=== PATIENT | female | born 1975 | race Caucasian/White ===

== ENCOUNTER 2020-09-09 09:15 | Outpatient (CLI) | payer OTHER, SELFPAY ==
--- NOTE | 2020-09-09 09:26 | MM_ITS ---
WS: [id number] BILATERAL DIGITAL SCREENING MAMMOGRAM WITH CAD CLINICAL INFORMATION: SCREENING HISTORY: Screening mammogram. No current complaints. COMPARISON: TECHNIQUE: Bilateral CC and MLO. FINDINGS: The breast are composed of extremely dense tissue, which can limit the detection of small underlying mass lesions. No suspicious focal mass, asymmetry, calcifications, or architectural distortion. No ev idence of malignancy. MM/[place] [id number] IMPRESSION: BI-RADS: 1-Negative FOLLOW UP: 1 Year Follow-up Recommend return to annual screening mammography.
== END 2020-09-09 09:16 | disposition home or self-care (01) ==
LOC: RADSHAW 09:17
PROVIDERS: Visit Provider Nurse Practitioner Family
DX: Z12.31 Encounter for screening mammogram for malignant neoplasm of breast (principal)
CPT/HCPCS: 77067

== ENCOUNTER → 2020-09-28 12:01 | Outpatient (BNVA) | payer OTHER, SELFPAY | PROVIDERS: Visit Provider Family Medicine Adult Medicine | DX: M89.8X8 Other specified disorders of bone, other site (principal); Z00.00 Encounter for general adult medical examination without abnormal findings; M25.552 Pain in left hip | CPT/HCPCS: 73502; 80053; 85025; 85651; 86140 ==

== ENCOUNTER 2020-12-28 13:18 | Outpatient (CLI) | payer OTHER, SELFPAY ==
--- NOTE | 2020-12-28 | MR_ITS ---
WS: [id number] MRI PELVIS without CONTRAST. COMPARISON: LEFT hip radiograph. Pelvic ultrasound 12/30/2016. HISTORY: 4 months of the LEFT iliac crest pain. No injury. Multiplanar, multisequence imaging is performed without contrast. Normal appearance of the LEFT iliac crest in the bones of the pelvis. No destructive bone lesions or soft tissue abnormality. There is no edema. Very slight narrowing of the hip joints. No erosions srini g the SI joints. Symmetric appearance of the soft tissues and muscles. Uterus is not identified. No midline soft tissue mass within the pelvis. There is a complex heterogen eous mass in the LEFT adnexa. Variable signal intensity within LEFT adnexal mass. This LEFT adnexal m ass corresponds to the ovary measuring 2.5 x 3.8 x 3.1 cm. Portion of this LEFT adnexal mass is of in creased T1 signal with fat suppression. There is an additional component that appears more cystic. Th ere is a small amount of edema and soft tissue induration and a small amount of free fluid in the pel vis. MR/MR pelvis wo con* [id number] IMPRESSION: 1. No signal abnormality within the LEFT pelvic osseous structures. 2. LEFT adnexal mass consistent with a slightly enlarged heterogeneous ovary m easuring 2.5 x 3.8 x 3.1 cm. Adjacent small amount of free fluid and free fluid in the pelvis. Differential includes dermoid versus hemorrhagic cyst or endome trioma. This was not identified on the prior pelvic ultrasound from 2017. Recom mend follow-up transvaginal pelvic ultrasound imaging for further characterizat ion of this LEFT adnexal mass.
== END 2020-12-28 13:19 | disposition home or self-care (01) ==
PROVIDERS: Visit Provider Family Medicine Adult Medicine
DX: M89.8X8 Other specified disorders of bone, other site (principal); Q50.39 Other congenital malformation of ovary
CPT/HCPCS: 72195

== ENCOUNTER → 2021-01-28 15:47 | Outpatient (BNVA) | payer OTHER, SELFPAY | PROVIDERS: Visit Provider Obstetrics & Gynecology | DX: N83.8 Other noninflammatory disorders of ovary, fallopian tube and broad ligament (principal); Z90.710 Acquired absence of both cervix and uterus | CPT/HCPCS: 76830 ==

== ENCOUNTER → 2021-04-20 08:35 | Outpatient (BNVA) | payer OTHER, SELFPAY | PROVIDERS: Visit Provider Family Medicine | DX: Z20.822 Contact with and (suspected) exposure to COVID-19 (principal) | CPT/HCPCS: 87426 ==

== ENCOUNTER → 2021-09-29 12:39 | Outpatient (BNVA) | payer OTHER, SELFPAY | PROVIDERS: Visit Provider Family Medicine Adult Medicine | DX: Z71.84 Encounter for health counseling related to travel (principal); Z20.822 Contact with and (suspected) exposure to COVID-19 | CPT/HCPCS: 87635; 87801 ==

== ENCOUNTER 2021-10-20 10:06 | Outpatient (CLI) | payer OTHER, SELFPAY ==
--- NOTE | 2021-10-20 10:11 | MM_ITS ---
WS: [id number] SCREENING DIGITAL BREAST TOMOSYNTHESIS MAMMOGRAM WITH CAD HISTORY: SCREENING COMPARISON: 09/09/2020, 01/31/2019 Bilateral CC and MLO with tomosynthesis and synthetic mammography submitted. Computer aided detection analyzed. Breast composition: The breasts are extremely dense, which lowers the sensitivity of mammography. Well-circumscribed mass in the inferior medial LEFT breast since the prior examination. This mass is well-circumscribed measuring 7 mm. This mass is in the mid to posterior breast at approximately 7:00 axis. No calcifications. MM/[place] [id number] IMPRESSION: BI-RADS: 0-Incomplete: Need additional imaging evaluation FOLLOW UP: Need Additional Imaging Recommendation: LEFT breast ultrasound, limited. Ultrasound directed LEFT breas t from 6-9 o'clock.
== END 2021-10-20 10:07 | disposition home or self-care (01) ==
LOC: RAD 10:06
PROVIDERS: PCP Family Medicine Adult Medicine; Visit Provider Family Medicine Adult Medicine
DX: Z12.31 Encounter for screening mammogram for malignant neoplasm of breast (principal)
CPT/HCPCS: 77063; 77067

== ENCOUNTER 2021-11-03 07:31 | Outpatient (CLI) | payer OTHER, SELFPAY ==
--- NOTE | 2021-11-03 07:38 | US_ITS ---
WS: [id number] ULTRASOUND BREAST LEFT TECHNIQUE: Ultrasound left breast focused area of concern. CLINICAL INFORMATION: Ultrasound directed LEFT breast from 6-9 o'clock. COMPARISON: October 20, 2021 FINDINGS: Ultrasound LEFT breast 6:00 position 1 cm from the nipple. There is a 6.7 x 3.2 x 3.6 mm anechoic cys t. Tiny amount of internal debris with a tiny septation. This has a benign appearance. This correspon ds to the 7 mm lesion seen on the prior mammogram. Recommend 6 month follow-up to confirm stability c onsidering slightly complex appearance. No other suspicious findings. No lesions to target for biopsy. . US/US breast LT limited* [id number] IMPRESSION: BI-RADS 3 PROBABLY BENIGN FOLLOW UP: RECOMMEND 6 MONTH FOLLOW-UP LEFT BREAST DIAGNOSTIC MAMMOGRAPHY AND U LTRASOUND.
== END 2021-11-03 07:32 | disposition home or self-care (01) ==
PROVIDERS: PCP Family Medicine Adult Medicine; Visit Provider Family Medicine Adult Medicine
DX: R92.8 Other abnormal and inconclusive findings on diagnostic imaging of breast (principal)
CPT/HCPCS: 76642

== ENCOUNTER 2022-06-01 10:41 | Outpatient (CLI) | payer OTHER, SELFPAY ==
--- NOTE | 2022-06-01 10:49 | MM_ITS ---
WS: [id number] LEFT 3D TOMOSYNTHESIS DIGITAL MAMMOGRAPHY WITH CAD CLINICAL INFORMATION: 6 month follow up HISTORY: Six-month follow-up COMPARISON: October 20, 2021 and November 03, 2021 TECHNIQUE: 3 views of the left breast were obtained. FINDINGS: The left breast is composed of heterogeneous fibroglandular density tissue, which can limit the detec tion of small underlying mass lesions. Previously described ovoid lesion in the inferior medial LEFT breast is not well seen on today's study and may have resolved. No other suspicious or new abnormalit ies. Ultrasound described below. ULTRASOUND BREAST LEFT TECHNIQUE: Ultrasound left breast focused area of concern. CLINICAL INFORMATION: 6 month follow up COMPARISON: November 03, 2021 FINDINGS: Previously described cystic lesion at the 6:00 position is no longer visualized today. Normal underly ing parenchymal tissue. No cystic or solid lesions. Recommend return to annual screening mammography. MM/[place] [id number] IMPRESSION: BI-RADS: 2-Benign FOLLOW UP: 1 Year Follow-up Recommend return to annual screening mammography.
== END 2022-06-01 10:42 | disposition home or self-care (01) ==
LOC: RAD 10:41
PROVIDERS: PCP Family Medicine Adult Medicine; Visit Provider Family Medicine Adult Medicine
DX: R92.8 Other abnormal and inconclusive findings on diagnostic imaging of breast (principal)
CPT/HCPCS: 76642; 77061; G0279

== ENCOUNTER → 2023-04-28 08:52 | Outpatient (BNVA) | payer OTHER, SELFPAY | PROVIDERS: PCP Family Medicine Adult Medicine; Visit Provider Family Medicine Adult Medicine | DX: R10.9 Unspecified abdominal pain (principal); N20.2 Calculus of kidney with calculus of ureter; R31.9 Hematuria, unspecified | CPT/HCPCS: 81000 ==

== ENCOUNTER 2023-09-20 08:57 | Outpatient (CLI) | payer OTHER, SELFPAY ==
--- NOTE | 2023-09-20 09:00 | MM_ITS ---
WS: [id number] BILATERAL SCREENING DIGITAL TOMOSYNTHESIS MAMMOGRAM WITH CAD HISTORY: annual screening COMPARISON: 06/01/2022, 09/09/2020 Bilateral CC and MLO views with tomosynthesis and synthetic mammography submitted. Computer aided det ection analyzed. Breast composition: The breasts are heterogeneously dense, which may obscure small masses. No suspici ous masses, microcalcifications or architectural distortion. IMPRESSION: MM/[place] [id number] BI-RADS: 1-Negative FOLLOW UP: 1 Year Follow-up
== END 2023-09-20 08:58 | disposition home or self-care (01) ==
LOC: RAD 08:58
PROVIDERS: PCP Family Medicine Adult Medicine; Visit Provider Family Medicine Adult Medicine
DX: Z12.31 Encounter for screening mammogram for malignant neoplasm of breast (principal)
CPT/HCPCS: 77063; 77067

== ENCOUNTER → 2023-10-06 07:59 | Outpatient (BNVA) | payer OTHER, SELFPAY | PROVIDERS: PCP Family Medicine Adult Medicine; Visit Provider Family Medicine Adult Medicine | DX: Z56.9 Unspecified problems related to employment (principal) | CPT/HCPCS: 86706 ==

== ENCOUNTER 2024-11-20 09:30 | Outpatient (CLI) | payer OTHER, SELFPAY ==
--- NOTE | 2024-11-20 14:00 | MM_ITS ---
WS: [id number] SCREENING DIGITAL TOMOSYNTHESIS MAMMOGRAM WITH CAD HISTORY: screening COMPARISON: 09/20/2023, 06/01/2022 and 10/20/2021 Bilateral CC and MLO with tomosynthesis views submitted. Synthetic mammography reviewed. Computer aided detection analyzed. Breast composition: The breasts are heterogeneously dense, which may obscure small masses. No suspicious masses, microcalcifications or architectural distortion. MM/MM scr BI tomosynthesis [id number] IMPRESSION: BI-RADS: 1 - Negative FOLLOW UP: 1 Year Follow-up
== END 2024-11-20 09:31 | disposition home or self-care (01) ==
PROVIDERS: PCP Family Medicine Adult Medicine; Visit Provider Family Medicine Adult Medicine
DX: Z12.31 Encounter for screening mammogram for malignant neoplasm of breast (principal); R92.333 Mammographic heterogeneous density, bilateral breasts
CPT/HCPCS: 77063; 77067

== ENCOUNTER → 2024-12-04 07:54 | Outpatient (BNVA) | payer OTHER, SELFPAY | PROVIDERS: PCP Family Medicine Adult Medicine | DX: R10.9 Unspecified abdominal pain (principal) | CPT/HCPCS: 81000 ==

== ENCOUNTER → 2025-01-13 08:09 | Outpatient (BNVA) | payer OTHER, SELFPAY | PROVIDERS: PCP Family Medicine Adult Medicine; Visit Provider Family Medicine Adult Medicine | DX: R23.3 Spontaneous ecchymoses (principal) | CPT/HCPCS: 80053; 85025; 85610; 85730 ==

== ENCOUNTER → 2025-02-20 07:33 | Outpatient (BNVA) | payer OTHER, SELFPAY | PROVIDERS: PCP Family Medicine Adult Medicine; Visit Provider Family Medicine Adult Medicine | DX: R39.9 Unspecified symptoms and signs involving the genitourinary system (principal) | CPT/HCPCS: 87086 ==